=== PATIENT | female | born 1980 | race Caucasian/White ===

== ENCOUNTER 2022-04-29 16:01 | Outpatient (CLI) | payer BC, SELFPAY ==
[2022-04-29 21:49] LABS: Erythrocyte SedimentationRate* 6 mm/hr (2-20)
[2022-05-03 09:18] LABS: Rheumatoid Factor < 10 IU/mL (0-14)
[2022-05-03 19:51] LABS: Anti-Nuclear Ab(ANA)IgG ELISA None Detected (None Detected)
== END 2022-04-29 16:02 | disposition home or self-care (01) ==
PROVIDERS: PCP Family Medicine; Visit Provider Family Medicine
DX: M25.462 Effusion, left knee (principal); M25.562 Pain in left knee
CPT/HCPCS: 85651; 86039; 86431

== ENCOUNTER 2023-01-06 10:12 | Outpatient (CLI) | payer BC, SELFPAY | END 2023-01-06 10:13 | disposition home or self-care (01) | PROVIDERS: PCP Family Medicine; Visit Provider Family Medicine | DX: E66.01 Morbid (severe) obesity due to excess calories (principal); I10 Essential (primary) hypertension; E55.9 Vitamin D deficiency, unspecified; R53.83 Other fatigue; F41.1 Generalized anxiety disorder | CPT/HCPCS: 80048; 82306; 84443; 85025 ==

== ENCOUNTER 2024-02-16 08:18 | Outpatient (CLI) | payer BC, SELFPAY | END 2024-02-16 08:19 | disposition home or self-care (01) | PROVIDERS: PCP Family Medicine; Visit Provider Family Medicine | DX: I10 Essential (primary) hypertension (principal) | CPT/HCPCS: 80048; 80061 ==

== ENCOUNTER 2025-02-25 10:47 | Outpatient (CLI) | payer BC, SELFPAY | END 2025-02-25 10:48 | disposition home or self-care (01) | PROVIDERS: PCP Family Medicine; Visit Provider Family Medicine | DX: I10 Essential (primary) hypertension (principal); F41.1 Generalized anxiety disorder; E66.01 Morbid (severe) obesity due to excess calories; Z68.41 Body mass index [BMI] 40.0-44.9, adult | CPT/HCPCS: 80048; 80061; 84443; 85025 ==

== ENCOUNTER 2025-09-27 07:43 | Emergency (ER) | payer OTHER, BC, SELFPAY ==
--- OUTSIDE RECORDS SUMMARY | 2025-09-27 07:46 | XMS_ITS | Clinical Summary ---
Author Organization [facility] Address [address] [place] [id number] Care Team Providers Care Electroplating Worker Name Role Phone Levi Jo MD Primary Care Provider + Allergies Active AllergyReactionsCriticalityNoted DateCommentsErythromycinNausea And Vomiting,Stomach BxxrvPje89/14/2007OxycodoneNausea And Vomiting,Stomach UpsetLow 07/27/2015PrednisoneNausea And PkcxgfpxFoz89/12/2018 Medications * This document contains information received from the source organization and may not represent a complete record from that organization. MedicationSigDispense QuantityRefillsLast FilledStart DateEnd DateStatus buPROPion (WELLBUTRIN XL) 300 mg Extended-Release tablet Take 300 mg by mouth once daily in the morning.5Active lisinopriL (PRINIVIL; ZESTRIL) 10 mg tablet Take 1 Tablet by mouth once daily.5Active naltrexone (REVIA) 50 mg tablet Take 1 Tablet by mouth once daily.5Active nicotine 7 mg/24 hr (NICODERM; HABITROL) 7 mg/24 hr patch Apply 1 Patch on dry, clean, hairless skin once daily.5Active ondansetron (ZOFRAN ODT) [address] 8 mg on the tongue every 8 hours if needed.5Active pen Mounjaro 10 mg/0.5 mL pen Inject 10 mg subcutaneous once weekly.5Active FLUoxetine (PROZAC) 20 mg capsule Take 1 Capsule by mouth once daily.5Active omeprazole (PRILOSEC) 20 mg Delayed-Release capsule Take 1 Capsule by mouth once daily.5Active predniSONE (DELTASONE) 50 mg tab tablet Indications:BronchitisOne po QAM as needed symptoms. 10 Tablet 5Active albuterol HFA (PRO-AIR; VENTOLIN; PROVENTIL) 90 mcg/actuation inhaler Indications:BronchitisInhale 1-2 Puffs by mouth every 4 hours if needed for Shortness Of Breath or Wheezing. 1 Each 5Active Active Problems ProblemNoted DateDiagnosed DateAnxiety state, liyttapzcln01/13/2007GERD 12/09/2006Unspecified essential odpnniflbynv31/13/2007Polycystic Ovarian Joyiazxc97/13/0834GPJITLFDYOU13/13/2007 Immunizations ImmunizationAdministration DatesNext DueAMB Influenza, IIV3 (Age >=3 years)(Flu Clinic Only)06/29/2013,07/22/2011,07/05/2009MB Influenza, IIV4 PF (=>6 mos Flulaval,Fluzone Fluarix)(Flu Clinic Only)06/24/2018Hepatitis A (Adult) 08/13/2005,11/26/2004Hepatitis B (Adult)07/23/2013Influenza A (H1N1), Inactivated (Age >=3 Years)09/11/2009Influenza, IIV3 (Age >=3 years)08/08/2007, 08/19/2006Influenza, AOZ322/01/2015,06/29/2014MMR05/31/1992Td (Age >=7 Years) 03/09/1992Tdap111/10/2007Tuberculin (PPD)05/09/2003 Family History Medical HistoryRelationNameCommentsCancerFatherTESTICALAllergiesMaternal GrandfatherSEASONALArthritisMaternal GrandfatherAsthmaMaternal GrandfatherCancer Maternal GrandfatherKIDNEYHeart DiseaseMaternal GrandfatherHypertensionMaternal GrandfatherArthritisMaternal GrandmotherHeart DiseaseMaternal Grandmother Anesthesia ProblemMotherArthritisMotherPsychiatric illnessMotherAND FAMILY H/O CancerPaternal GrandmotherAPPYAsthmaSon 2RelationNameStatusCommentsFatherAlive Maternal GrandfatherAliveMaternal GrandmotherAliveMotherAlivePaternal GrandfatherDeceasedPaternal CffuvwwcrgcRevvrjlaWqwmdsBbpjzU2Uvy 1AliveSon 2 Social History Tobacco UseTypesPacks/DayYears UsedDateSmoking Tobacco: Some DaysCigarettes Smokeless Tobacco: Never Tobacco Cessation:Ready to Q uit: Yes; Counseling Given: Yes Comments:social Alcohol UseStandard Drinks/WeekCommentsYes0 (1 standard drink = 0.6 oz pure alcohol)socialPHQ-2AnswerDate RecordedPHQ-2 TOTAL [id number] SafetyAnswerDate RecordedAre you being hit, kicked, pushed or yelled at (see row info)?No03/22/2024Interpersonal Safety Abuse 12 - 18Not on file03/22/2024 Interpersonal Safety Ambulatory VulnerabilityNot on file03/22/2024 CommentsNoSex and Gender InformationValueDate RecordedSex Assigned at BirthNot on fileLegal ZwyIjwpcw62/14/2013 5:47 AM CSTGender IdentityNot on fileSexual OrientationNot on file Obstetrics History GravidaParaTermPretermABIABSABEctopicMultipleLivingLive Ldagsl04PafhOurrtbqTM Total LaborLabor/2nd/5soXmqoccEmkMhhoZgzeYFPEfxY4L8FldqVkadFubrbeqZqachcuFguexrc Last Filed Vital Signs Vital SignReadingTime TakenCommentsBlood Cafdrtzc709/6409 12:22 PM CDT Rppkl379106/12/2025 12:22 PM LXFGovxumbfgyc75.4 ??C (97.6 ??F)06/12/2025 12:22 PM CDTRespiratory Thze728406/12/2025 12:22 PM CDTOxygen Tnxxuoshtm324%06/12/2025 12:22 PM CDTInhaled Oxygen Concentration--Efbiah09.9 kg (163 lb)06/12/2025 12:22 PM RSTRyuwcy634.6 cm (5' 6)03/22/2024 7:19 PM CDTBody Mass Index26.31003/22/2024 7:19 PM CDT Plan of Treatment Health MaintenanceDue DateLast DoneCommentsHIV for age 15-Hepatitis C screening for age 18-7905/28/1997Hepatitis B series for 19+ (2 of 3 - 19+ 3- dose series)Tetanus , 03/09/1992 BMI (ht and wt on same day) for age 18+, 07/07/2018, 07/03/2018, Additional history existsColonoscopy through age 75005/28/2024Lipids for age 45-Mammogram for age 40-ap test for age 21-65 , 06/27/2021epression screening for age 12+11/11/2024 11/11/2023, 07/03/2018, 07/01/2018, Additional history existsCOVID-19 vaccine series ( - 2024- season), 10/04/2020Influenza Vaccine (#1), 07/03/2015, 06/29/2014, Additional history exists Pneumococcal series for age 6-49Aged OutNo longer eligible based on patient's age to complete this topic Procedures Procedure NamePriorityDate/TimeAssociated DiagnosisCommentsHPV HIGH RISKRoutine 06/27/2021 12:00 PM CDT from Last 3 Months or Most Recently Relevant to Health Maintenance Results * HPV HIGH RISK (06/27/2021 12:00 PM CDT)ComponentValueRef RangeTest Method Analysis TimePerformed AtPathologist SignatureTYPE 16NegativeNegative 07/02/2021 11:17 AM [facility]-CENTRAL LABORATORYTYPE 18 GiufcfcqVsxekozm54/04/2021 11:17 AM [facility]-CENTRAL LABORATORYOTHER HIGH RISK QQZVOHarfvyaeUolznaqz70/04/2021 11:17 AM [facility]-CENTRAL LABORATORYSpecimen (Source)Anatomical Location / LateralityCollection Method / VolumeCollection TimeReceived TimeOther (Cervical/Vaginal)06/27/2021 12:00 PM CDT06/28/2021 10:35 AM CDT Narrative [facility] - 07/02/2021 11:17 AM CDT HPV types 16, 18, 31, 33, 35, 39, 45, 51, 52, 56, 58, 59, 66 and 68 DNA were undetectable or below the pre-set threshold. Methodology: [employer] Craig 4800 HPV Test Authorizing ProviderResult TypeResult StatusDavid Stephen Jo MDMICROBIOLOGY Final ResultPerforming OrganizationAddressCity/State/ZIP CodePhone Number [facility] [address] [place] [address], from Last 3 Months or Most Recently Relevant to Health Maintenance Insurance Care Teams Team MemberRelationshipSpecialtyStart DateEnd Date Levi Jo MD [address] [place] [address] PCP - GeneralFamily Mnnpgwbz79/25/21
--- OUTSIDE RECORDS SUMMARY | 2025-09-27 07:46 | XMS_ITS | Clinical Summary ---
Author Organization [facility] Address [address] [place] [address] Care Team Providers Care Sales And Marketing Specialist Name Role Phone Levi Jo MD Primary Care Provider Source Comments You are receiving this document as you are listed as the primary care provider,follow-up provider, or the patient has been referred to you for consultation.This is in compliance with the Medicare andMedicaid EHR Incentive Program,which states Providers who transition their patient to another setting of careor provider of care or refers their patient to another provider of care shouldprovide summary care record for each transition of care or referral. [facility] Allergies Active AllergyReactionsCriticalityNoted DateCommentsErythromycinGastrointestinal High02/04/20229658ZgaahwnfbSqmmekczxnmfiqzrEyys07/23/2022 Medications MedicationSigDispense QuantityRefillsLast FilledStart DateEnd DateStatus lisinopril-hydrochlorothiazide (PRINZIDE) 10-12.5 MG tablet Take 1 Tablet by mouth daily.01/16/2022ctive FLUoxetine (PROZAC) 40 MG capsule Take 1 Capsule (40 mg) by mouth daily.12/22/2021ctive omeprazole (PRILOSEC) 20 MG capsule Take 1 Capsule (20 mg) by mouth daily.12/22/2021ctive LORazepam (ATIVAN) 1 MG tablet Take 1 Tablet (1 mg) by mouth two times daily as needed.01/27/2022ctive Meloxicam (MOBIC) 15 MG tablet TAKE 1 TABLET(15 MG) BY MOUTH DAILY NEEDED FOR PAIN 30 Tablet 03/20/2022ctive Additional Information Patient not taking.Reported on 02/05/2023 methocarbamol (ROBAXIN) 500 MG tablet Take 1 Tablet (500 mg) by mouth three times a day as needed. 30 Tablet 12/03/2022ctive Additional Information Patient not taking.Reported on 02/05/2023 HYDROcodone-acetaminophen (NORCO) 5-325 MG tablet Take 1 Tablet by mouth every 6 hours as needed for Pain. 10 Tablet 03/03/2023ctive Active Problems No known active problems Social History Tobacco UseTypesPacks/DayYears UsedDateSmoking Tobacco: Some DaysCigarettes Tobacco Cessation:Ready to Q uit: Not Asked; Counseling Given: Not Answered CommentsUnknownSex and Gender InformationValueDate RecordedSex Assigned at BirthNot on fileLegal LujCcczmz13/10/2012 6:00 AM CDTGender IdentityNot on fileSexual OrientationNot on file Last Filed Vital Signs Vital SignReadingTime TakenCommentsBlood Pressure--Pulse--Bitwzspgezs58.2 ??C (97.1 ??F)03/03/2023 7:01 PM CDTRespiratory Rate--Oxygen Saturation--Inhaled Oxygen Concentration--Ylcfud426.5 kg (270 lb)03/07/2023 12:59 PM WGUPhdehi822.6 cm (5' 6)03/07/2023 12:59 PM CDTBody Mass Index43.5806 12:59 PM CDT Plan of Treatment Health MaintenanceDue DateLast DoneCommentsColon Cancer Screening Plan Due 1979Hep C Screening (Preventive Services)1980 8900Yxkgemxop1979HIV Screening (Preventive Services)1995Adult Preventive Visit1997HepB Vaccine (1)1998Pneumococcal Vaccine (1 of 2 - PCV)1998Cervical Cancer Screening Due11/12/095805/8717Ysfnnxmgdda98/30/2024COVID-19 Vaccine (3 - season)502/11/2020, 10/04/2020Influenza Vaccine (#1) /08/2022, 07/14/2020, 07/07/2019, Additional history exists Zoster/Shingles Vaccine (1 of 2)2029DTaP/Tdap/Td Vaccine (3 - Tdap) , 09/09/2008HepA VaccineAged Out08/13/2005, 05/26/2005, 11/26/2004No longer eligible based on patient's age to complete this topicHib VaccineAged OutNo longer eligible based on patient's age to complete this topic IPV (Polio) VaccineAged OutNo longer eligible based on patient's age to complete this topicMCV4 VaccineAged OutNo longer eligible based on patient's age to complete this topicMeningococcal B VaccineAged OutNo longer eligible based on patient's age to complete this topic Insurance * Guarantor: Cooper Rolon TypeRelation to PatientDate of BirthPhone Billing AddressPersonal/TzcdcjSztt1980 [address] [place] [address] * Guarantor: Cooper Rolon TypeRelation to PatientDate of BirthPhone Billing AddressWorkers QhalIwkb1980 [address] [place] [address] Care Teams Team MemberRelationshipSpecialtyStart DateEnd Date Levi Jo MD [address] [place] [address] [facility]
[2025-09-27 08:10] VITALS: BP 118/83; PULSE 85; RESP 18; TEMP 36.9; O2SAT 100; BMI 21.1
--- NOTE | 2025-09-27 08:19 | CRLHL7_ITS ---
For Patients: As a result of the Cures Act, medical imaging exams and procedure reports are released immediately into your electronic medical record. You may view this report before your referring provider. If you have questions, please contact your health care provider. Indication: Crush injury Technique: Right hand three views Comparison: None. Findings/impression : No findings for fracture or dislocation. No focal bone lesions. No radiopaque foreign bodies. Dictated by Brandan Rodriguez MD @ 09/27/2025 8:58:53 AM (Electronically Signed)
--- NOTE | 2025-09-27 08:39 | ED.GENADULT ---
HPI - General Adult General Chief complaint: Extremity Pain/Injury, Upper Stated complaint: R hand injury Time Seen by Provider: 09/27/25 08:24 History of Present Illness HPI narrative: was at work and trying to get metal crate on to forklift and pinched r hand between 2 metal things and R hand was trapped. pt had gloves on. has pain, swelling and bruising to hand that radiates up arm . pt did ice and take ibuprofen 45-year-old woman presenting to the emergency department with concern of right hand pain. At work was attempting to manipulate a crate onto a forklift and her gloved hand was pinched. Having a good deal discomfort in the lateral aspect dorsal area of the right hand. Hurts to flex and extend fingers. Related Data Home Medications ?Medication ?Instructions ?Recorded ?Confirmed biotin 10,000 mcg disintegrating 10,000 mcg PO QDAY 02/25/25 10/13/25 tablet calcium 600 mg (as carbonate)-vit tab PO 02/25/25 10/13/25 D3 10 mcg (400 unit) chewable tablet (Calcium 600 with Vitamin D3) sennosides 8.6 mg capsule (senna) 8.6 mg PO QDAY 02/25/25 10/13/25 zinc sulfate 50 mg zinc (220 mg) 50 mg PO QDAY 02/25/25 10/13/25 capsule (Orazinc) ascorbic acid (vitamin C) 500 mg mg PO 10/13/25 10/13/25 capsule Previous Rx's ?Medication ?Instructions ?Recorded ondansetron 8 mg disintegrating 8 mg PO TID PRN nausea and 01/02/25 tablet vomiting #20 tabs bupropion HCl 300 mg 24 hr tablet, 300 mg PO QAM #90 tabs 02/25/25 extended release (Wellbutrin XL) naltrexone 50 mg tablet 50 mg PO QDAY #90 tabs 02/25/25 omeprazole 20 mg capsule,delayed 20 mg PO QDAY #90 caps 02/25/25 release lisinopril 5 mg tablet 5 mg PO QDAY #90 tabs 08/04/25 lorazepam 1 mg tablet 0.5 - 1 mg (0.5 - 1 x 1 mg) PO BID 08/04/25 PRN anxiety #30 tabs tirzepatide 10 mg/0.5 mL 10 mg (0.5 mL) subcut QWEEK #2 mL 08/22/25 subcutaneous pen injector Allergies Allergy/AdvReac Type Severity Reaction Status Date / Time acetaminophen (From Percocet) Allergy Intermediate Vomiting Verified 10/13/25 08:08 erythromycin base Allergy Intermediate Verified 10/13/25 08:08 oxycodone (From Percocet) Allergy Intermediate Vomiting Verified 10/13/25 08:08 prednisone Allergy Mild upset Verified 10/13/25 08:08 stomach and headaches seasonal Allergy Mild congestion Uncoded 10/13/25 08:08 Review of Systems Status of ROS: Reports: 6 or more systems reviewed and unremarkable except as noted in History and below [facility] Medical History Primary hypertension ?I10 - Essential (primary) hypertension (ICD-10) Major depression, recurrent ?F33.9 - Major depressive disorder, recurrent, unspecified (ICD-10) Polycystic ovarian syndrome ?E28.2 - Polycystic ovarian syndrome (ICD-10) GERD (gastroesophageal reflux disease) ?K21.9 - Gastro-esophageal reflux disease without esophagitis (ICD-10) Morbid obesity with BMI of 40.0-44.9, adult ?E66.01 - Morbid (severe) obesity due to excess calories (ICD-10) ?Z68.41 - Body mass index [BMI] 40.0-44.9, adult (ICD-10) Osteoarthritis of left knee ?M17.12 - Unilateral primary osteoarthritis, left knee (ICD-10) Tobacco abuse ?Z72.0 - Tobacco use (ICD-10) DREW (generalized anxiety disorder) ?F41.1 - Generalized anxiety disorder (ICD-10) Surgical History Hx of breast implants, bilateral ?Z98.82 - Breast implant status (ICD-10) Previous section ?Z98.891 - History of uterine scar from previous surgery (ICD-10) Family History Mother Anesthesia complication Arthritis Psychiatric disorder Father Testicular cancer Maternal Grandmother Arthritis Heart disease Maternal Grandfather Arthritis High blood pressure History of kidney cancer Diabetes Heart disease Social History Narrative: , four kids, smoker, POST What is your current living situation?: I presently have a place to live Problems where you live: no known problems In the past 12 months, utilities in danger of being shut off: no In past 12 months, lack of transportation kept you from medical appts, meetings, work, or getting things needed for daily living: no In the past 12 mos, have been you worried that your food would run out before you had money to buy more?: never true In the past 12 mos, the food you bought just didn't last and you didn't have money to buy more?: never true Smoking Status: Current some day smoker Non-prescribed substance use: denies use How often does anyone, including family, friends and others, physically hurt you: never How often does anyone, including family, friends and others, insult or talk down to you: never How often does anyone, including family, friends and others, threaten you with harm: never How often does anyone, including family, friends and others, scream or curse at you: never Exam Narrative: Exam Narrative: Pleasant. Appears uncomfortable. Icing. Favoring the right hand. Examination of the right hand does show some swelling and tenderness over the mid, lateral metacarpals. Hurts a good deal to extend in particular the hand. I do not see any plantar bruising. I do not appreciate deformity though there is bony pain as mentioned. Well-perfused distally with good pulses. Const: Vital Signs, click to edit/add: Vital Signs - 24 hr 09/27/25 08:10 Temperature 98.5 F Pulse Rate [Pulse Oximeter] 85 Respiratory Rate 18 Blood Pressure [Le ft Upper Arm] 118/83 Pulse Oximetry 100 Oxygen Delivery Me thod Room Air Documenting provider has reviewed patient's vital signs: yes Course Vital Signs Vital signs: Initial Vital Signs Temperature 98.5 F 09/27/25 08:10 Temperature Source Temporal Artery Scan 09/27/25 08:10 Pulse Rate 85 09/27/25 08:10 Respiratory Rate 18 09/27/25 08:10 Blood Pressure 118/83 09/27/25 08:10 Blood Pressure Mean 94 09/27/25 08:10 Blood Pressure Position Sitting 09/27/25 08:10 Pulse Oximetry 100 09/27/25 08:10 Oxygen Delivery Method Room Air 09/27/25 08:10 Vital Signs Temperature 98.5 F 09/27/25 08:10 Pulse Rate 85 09/27/25 08:10 Respiratory Rate 18 09/27/25 08:10 Blood Pressure 118/83 09/27/25 08:10 Pulse Oximetry 100 09/27/25 08:10 Oxygen Delivery Method Room Air 09/27/25 08:10 Temperature 98.5 F 09/27/25 08:10 Pulse Rate 85 09/27/25 08:10 Respiratory Rate 18 09/27/25 08:10 Blood Pressure 118/83 09/27/25 08:10 Pulse Oximetry 100 09/27/25 08:10 Oxygen Delivery Method Room Air 09/27/25 08:10 Medical Decision Making MDM Narrative Medical decision making narrative: This crush certainly warrants imaging. May have been more of the periosteal contusion though but mechanism certainly could have sustained a fracture here. I do not appreciate disruption of the tendons; I think pain is contributing to challenges with movement. Three-view x-ray of the right hand independently reviewed by me appears to be without bony abnormality. I did return to discuss splinting for pain relief. Magdy wrapped. Provided a foam-backed aluminum splint that might help with discomfort. Radiology over-read below Indication: Crush injury Technique: Right hand three views Comparison: None. Findings/impression : No findings for fracture or dislocation. No focal bone lesions. No radiopaque foreign bodies. Dictated by Brandan Rodriguez MD @ 09/27/2025 8:58:53 AM See patient discharge plan for further discussion Can wear this splint as needed for comfort over this next week. Alternatively could tape on the foam backed aluminum splint I gave you. Remember to bibi tape this finger though. Ibuprofen, acetaminophen, ice, elevate. Follow up in a week to 10 days if not improved. Medical Records Medical records reviewed: Yes I reviewed the patient's medical records Discharge Plan Discharge Clinical Impression: Contusion of hand Patient Disposition: Home, Self-Care Condition: Stable Additional Instructions: Can wear this splint as needed for comfort over this next week. Alternatively could tape on the foam backed aluminum splint I gave you. Remember to bibi tape this finger though. Ibuprofen, acetaminophen, ice, elevate. Follow up in a week to 10 days if not improved. Prescriptions: No Action ascorbic acid (vitamin C) 500 mg capsule PO senna 8.6 mg capsule 8.6 mg PO QDAY zinc sulfate [Orazinc] 50 mg zinc (220 mg) capsule 50 mg PO QDAY Calcium 600 with Vitamin D3 600 mg-10 mcg (400 unit) tablet,chewable PO biotin 10,000 mcg tablet,disintegrating 10,000 mcg PO QDAY bupropion HCl [Wellbutrin XL] 300 mg tablet extended release 24 hr 300 mg PO QAM Qty: 90 3RF naltrexone 50 mg tablet 50 mg PO QDAY Qty: 90 3RF omeprazole 20 mg capsule,delayed release(DR/EC) 20 mg PO QDAY Qty: 90 3RF lisinopril 5 mg tablet 5 mg PO QDAY Qty: 90 1RF lorazepam 1 mg tablet 0.5 - 1 mg PO BID PRN (Reason: anxiety) Qty: 30 0RF ondansetron 8 mg tablet,disintegrating 8 mg PO TID PRN (Reason: nausea and vomiting) Qty: 20 0RF tirzepatide 10 mg/0.5 mL pen injector 10 mg subcut QWEEK Qty: 2 2RF Rx Instructions: for 4 weeks Follow Up/Referrals: Levi Jo MD [Primary Care Provider, Family Practice] Stand Alone Forms: [employer] Info Instructions
== END 2025-09-27 10:03 | disposition home or self-care (01) ==
PROVIDERS: Emergency Provider Family Medicine; PCP Family Medicine
DX: S60.221A Contusion of right hand, initial encounter (principal); W31.89XA Contact with other specified machinery, initial encounter; Y99.0 Civilian activity done for income or pay
CPT/HCPCS: 73130; 99283; 99284